=== PATIENT | female | born 1985 | race Asian ===

== ENCOUNTER → 2018-03-01 | Outpatient (CLI) | payer BC ==
--- NOTE | 2018-03-01 17:10 | RADIOLOGY REPORT (SQ) ---
EXAM DESCRIPTION: FOOT LEFT COMPLETE COMPLETED DATE/TIME: 03/01/2018 4:55 pm REASON FOR STUDY: LEFT FOOT PAIN M79.672 PAIN IN LEFT FOOT dropped something heavy on the top of he r foot 6 weeks ago, continued pain COMPARISON: None. NUMBER OF VIEWS: Three views. TECHNIQUE: AP, lateral and oblique radiographic images acquired of the left foot. LIMITATIONS: None. FINDINGS: MINERALIZATION: Normal. BONES: No acute fracture or dislocation. No worrisome bone lesions. JOINTS: No effusions. SOFT TISSUES: No soft tissue swelling. No foreign body. OTHER: No other significant finding. IMPRESSION: NEGATIVE STUDY OF THE LEFT FOOT. NO RADIOGRAPHIC EVIDENCE OF ACUTE INJURY. TECHNICAL DOCUMENTATION: JOB ID: [id number] [employer]- All Rights Reserved Reading location - IP/workstation name: [email or web address]
== END ==
LOC: OD 16:42
PROVIDERS: ATTEND Nurse Practitioner Family
DX: M79.672 Pain in left foot (principal)

== ENCOUNTER 2019-02-24 11:05 | Emergency (ER) | payer BC ==
[2019-02-24 11:28] VITALS: BP 133/73
[2019-02-24] MEDS ORDERED: IBUPROFEN 800 MG TABLET PO ONE (12:05)
--- NOTE | 2019-02-24 12:11 | ER Document Report ---
HPI - HPI Patient complains to provider of: left ankle injury Time Seen by Provider: 02/24/19 11:58 Onset: Yesterday Onset/Duration: Sudden, Persistent Quality of pain: Achy Severity: Moderate Pain Level: 3 Context: This 33-year-old female presents emergency department with complaints of left ankle pain after she was chasing her dog last night and jumped over a ditch. She reports she twisted it rolled it and felt a pop immediately. Patient reports she was able to walk on the foot last night so she thought she was okay. She went to work today at [employer] and started having severe pain unable to walk. Reports history of fracture to that ankle when she was a child. No other complaints such as fever vomiting diarrhea. She took Tylenol and that seemed to ease the pain a little bit. Associated Symptoms: None Exacerbated by: Walking Relieved by: Denies Similar symptoms previously: No Recently seen / treated by doctor: No Past Medical History - General Information source: Patient Last Menstrual Period: 3weeks ago - Social History Smoking Status: Current Every Day Smoker Cigarette use (# per day): Yes Chew tobacco use (# tins/day): No Frequency of alcohol use: Occasional Drug Abuse: None Occupation: [employer] Family History: Reviewed & Not Pertinent Patient has suicidal ideation: No Patient has homicidal ideation: No - Past Medical History Cardiac Medical History: Denies: Hx Heart Attack, Hx Hypertension Pulmonary Medical History: Denies: Hx Asthma, Hx Bronchitis, Hx COPD, Hx Pneumonia Neurological Medical History: Denies: Hx Cerebrovascular Accident, Hx Seizures GI Medical History: Musculoskeletal Medical History: Denies Hx Arthritis Traumatic Medical History: Reports: Hx Fractures Infectious Medical History: Past Surgical History: Reports: Hx Cholecystectomy. Denies: Hx Pacemaker - Immunizations Hx Diphtheria, Pertussis, Tetanus Vaccination: No Vertical Provider Document - CONSTITUTIONAL Agree With Documented VS: Yes Exam Limitations: No Limitations General Appearance: WD/WN, No Apparent Distress - winces with touch to ankle - INFECTION CONTROL TRAVEL OUTSIDE OF THE [place] IN LAST 30 DAYS: No - HEENT HEENT: Atraumatic, Normocephalic - NECK Neck: Supple - RESPIRATORY Respiratory: No Respiratory Distress - CARDIOVASCULAR Cardiovascular: Regular Rate - MUSCULOSKELETAL/EXTREMETIES Musculoskeletal/Extremeties: MAEW, Tender - Left lateral malleolus swelling, tender to palpate, good pedal pulse, cap refill less than 3 seconds. No ecchymosis no erythema - NEURO Level of Consciousness: Awake, Alert, Appropriate Motor/Sensory: No Motor Deficit - DERM Integumentary: Warm, Dry Course - Re-evaluation Re-evalutation: 02/24/19 12:50 33-year-old female presents with left ankle pain after she hurt it while chasing her dog last night. Ankle X-Ray 02/24/19 12:05 IMPRESSION: Tibiotalar joint effusion. Diffuse lateral soft tissue swelling. No disruption of the ankle mortise or acute displaced fractures identified 02/24/19 13:28 Tibiotalar effusion noted on x-ray. Patient will be treated with Mikhail wrap crutches pain medication. She was instructed on results. She was instructed on the importance of follow-up with a provider and orthopedics she verbalized understanding to all instructions Dictation of this chart was performed using voice recognition software; therefore, there may be some unintended grammatical errors. - Vital Signs Vital signs: Temp Pulse Resp BP Pulse Ox 98.2 F 85 18 133/73 H 100 02/24/19 11:27 02/24/19 11:27 02/24/19 11:27 02/24/19 11:27 02/24/19 11:27 - Diagnostic Test Radiology reviewed: Image reviewed, Reports reviewed Procedures - Immobilization Left Ankle Immobilizer type: Mikhail wrap Performed by: RAJIV waters Post-Proc Neuro Vasc Exam: Unchanged from pre-exam Alignment checked and good: Yes Discharge - Discharge Clinical Impression: Left ankle injury Qualifiers: Encounter type: initial encounter Qualified Code(s): S99.912A - Unspecified injury of left ankle, initial encounter Sprain of left ankle Qualifiers: Encounter type: initial encounter Involved ligament of ankle: unspecified ligament Qualified Code(s): S93.402A - Sprain of unspecified ligament of left ankle, initial encounter Condition: Stable Disposition: HOME, SELF-CARE Instructions: Mikhail Wrap ([facility]), Use of Crutches ([facility]), Ice & Elevation ([facility]), Oral Narcotic Medication ([facility]), Sprained Ankle ([facility]) Additional Instructions: *You have been evaluated for an ankle injury, sprain *Rest/Ice/Elevate your ankle *Maintain the mikhail wrap, use the crutches for the next three days *Follow up with orthopedics Tuesday-call for an appointment *Take medication as prescribed (take ibuprofen as indicated take [place] for the acute pain) *Return to ED for worsening condition, changes, needs Monitor your blood pressure. Your blood pressure was elevated today. This may be because you were anxious, in pain or because you need medication. It is important to follow up with your primary care provider for full evaluation. Forms: Elevated Blood Pressure, Return to Work Referrals: GINA MUJICA FNP-C [NURSE PRACTITIONER] - Follow up in 1 week
--- NOTE | 2019-02-24 12:47 | RADIOLOGY REPORT (SQ) ---
EXAM DESCRIPTION: ANKLE LEFT COMPLETE COMPLETED DATE/TIME: 02/24/2019 12:34 pm REASON FOR STUDY: twisted felt pop swelling COMPARISON: None. NUMBER OF VIEWS: Three views. TECHNIQUE: AP, lateral, and oblique radiographic images acquired of the left ankle. LIMITATIONS: None. FINDINGS: MINERALIZATION: Normal. BONES: No acute fracture or dislocation. No worrisome bone lesions. JOINTS: There is a tibiotalar joint effusion present. Normal alignment at the ankle mortise SOFT TISSUES: Diffuse lateral soft tissue swelling. No foreign body. OTHER: No other significant finding. IMPRESSION: Tibiotalar joint effusion. Diffuse lateral soft tissue swelling. No disruption of the ankle mortise or acute displaced fractures identified TECHNICAL DOCUMENTATION: JOB ID: [id number] [employer]- All Rights Reserved Reading location - IP/workstation name: [email or web address]
[2019-02-24] MEDS ORDERED: HYDROCODONE/ACETAMINOPHEN 5-325 MG (6 TAB/ER DISP) PO PRN (13:27)
== END 2019-02-24 13:40 | disposition home or self-care (01) ==
LOC: ER 11:05
DX: S90.912A Unspecified superficial injury of left ankle, initial encounter (principal); S93.402A Sprain of unspecified ligament of left ankle, initial encounter; X50.1XXA Overexertion from prolonged static or awkward postures, initial encounter; F17.210 Nicotine dependence, cigarettes, uncomplicated
CPT/HCPCS: 99283

== ENCOUNTER 2019-06-02 17:40 | Emergency (ER) | payer BC ==
[2019-06-02] MEDS ORDERED: IBUPROFEN 600 MG TABLET PO ONE (18:55)
[2019-06-02] MEDS ORDERED: HYDROCODONE/ACETAMINOPHEN 5-325 MG TABLET PO ONE (18:55)
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
[2019-06-02 20:59] VITALS: BP 115/80
== END 2019-06-02 21:19 | disposition home or self-care (01) ==
LOC: ER 17:40
DX: S02.2XXA Fracture of nasal bones, initial encounter for closed fracture (principal); Y04.0XXA Assault by unarmed brawl or fight, initial encounter; F17.200 Nicotine dependence, unspecified, uncomplicated; Z90.49 Acquired absence of other specified parts of digestive tract
CPT/HCPCS: 70160; 99283

== ENCOUNTER 2020-05-29 16:18 | Emergency (ER) | payer SELFPAY ==
[2020-05-29 16:23] VITALS: BP 138/74
--- NOTE | 2020-05-29 17:28 | RADIOLOGY REPORT (SQ) ---
EXAM DESCRIPTION: HAND RIGHT 3 VIEWS IMAGES COMPLETED DATE/TIME: 05/29/2020 5:18 pm REASON FOR STUDY: right hand swelling COMPARISON: None. EXAM PARAMETERS: NUMBER OF VIEWS: Three views. TECHNIQUE: AP, lateral and oblique radiographic images acquired of the right hand. LIMITATIONS: None. FINDINGS: MINERALIZATION: Normal. BONES: No acute fracture or dislocation. No worrisome bone lesions. JOINTS: No effusions. SOFT TISSUES: Soft tissue swelling. No foreign body. OTHER: No other significant finding. IMPRESSION: Soft tissue swelling. No osseous abnormality. TECHNICAL DOCUMENTATION: JOB ID: [id number] 2010 [employer]- All Rights Reserved Reading location - IP/workstation name: [email or web address]
--- NOTE | 2020-05-29 17:34 | ER Document Report ---
ED Hand/Wrist Injury - General Chief Complaint: Hand Swelling Stated Complaint: HAND SWELLING Time Seen by Provider: 05/29/20 16:53 Primary Care Provider: RITA ALICIA DO [ACTIVE STAFF] - Follow up as needed TRAVEL OUTSIDE OF THE [place] IN LAST 30 DAYS: No - HPI Notes: Patient is a 34 y/o female with no medical hx who presents with right hand pain and swelling that began last night. Patient reports redness but denies any warmth. She state she recently started working at the [employer] and uses her hands a lot at work and is right hand dominant. Patient denies any injury or wounds to her right hand or any other complaints. She denies fever or vomiting. - Related Data Allergies/Adverse Reactions: acetaminophen [From Percocet] Adverse Reaction (Intermediate, Verified 05/29/20 18:37) itch,vomit oxycodone HCl [From Percocet] Adverse Reaction (Intermediate, Verified 05/29/20 18:37) itch,vomit Past Medical History - General Information source: Patient - Social History Smoking Status: Unknown if Ever Smoked Family History: Reviewed & Not Pertinent - Past Medical History Cardiac Medical History: Denies: Hx Heart Attack, Hx Hypertension Pulmonary Medical History: Denies: Hx Asthma, Hx Bronchitis, Hx COPD, Hx Pneumonia Neurological Medical History: Denies: Hx Cerebrovascular Accident, Hx Seizures GI Medical History: Musculoskeletal Medical History: Denies Hx Arthritis Traumatic Medical History: Reports: Hx Fractures Infectious Medical History: Past Surgical History: Reports: Hx Cholecystectomy. Denies: Hx Pacemaker - Immunizations Hx Diphtheria, Pertussis, Tetanus Vaccination: No Review of Systems - Review of Systems Constitutional: No symptoms reported EENT: No symptoms reported Cardiovascular: No symptoms reported Respiratory: No symptoms reported Gastrointestinal: No symptoms reported Genitourinary: No symptoms reported Female Genitourinary: No symptoms reported Musculoskeletal: See HPI Skin: No symptoms reported Hematologic/Lymphatic: No symptoms reported Neurological/Psychological: No symptoms reported Physical Exam - Vital signs Vitals: Temp Pulse Resp BP Pulse Ox 98.9 F 91 16 138/74 H 100 05/29/20 16:21 05/29/20 16:21 05/29/20 16:21 05/29/20 16:21 05/29/20 16:21 - Notes Notes: PHYSICAL EXAMINATION: GENERAL: Well-appearing, well-nourished and in no acute distress. HEAD: Atraumatic, normocephalic. EYES: sclera anicteric, conjunctiva are normal. ENT: Moist mucous membranes. NECK: Normal range of motion LUNGS: Normal work of breathing HEART: 2+ radial pulses bilaterally EXTREMITIES: Mild swelling and erythema to the right hand. Right hand nontender with no warmth. Range of motion mildly limited in flexion secondary to pain. Passive extension intact. Sensation grossly intact. Cap refill less than 2 seconds. No pitting or edema. No cyanosis. NEUROLOGICAL: No focal neurological deficits. Moves all extremities spontaneously and on command. PSYCH: Normal mood, normal affect. SKIN: Warm, Dry, normal turgor, no rashes or lesions noted. Course - Re-evaluation Re-evalutation: Patient is a 34-year-old female who presents with right hand swelling that began last night. Vital signs are stable and within normal limits. On exam, mild right hand swelling and erythema with no tenderness or warmth. Right hand x-ray is negative and shows no osseous abnormalities. Based on presentation and work- up, I believe patient symptoms are due to an overuse injury as she recently restarted working at the [employer]. Patient given a shot of IM Toradol for pain relief. She was advised to take Tylenol and ibuprofen as needed for pain. Orthopedic referral provided in case her symptoms do not improve. Return precau tions including symptoms of cellulitis were given to the patient. Patient will be discharged home at this time. Patient understands and is in agreement with the plan. - Vital Signs Vital signs: Temp Pulse Resp BP Pulse Ox 98.9 F 91 16 138/74 H 100 05/29/20 16:21 05/29/20 16:21 05/29/20 16:21 05/29/20 16:21 05/29/20 16:21 - Laboratory Results Critical Laboratory Results Reviewed: No Critical Results - Radiology Results Radiology Results Interpreted: Hand X-Ray 05/29/20 17:08 IMPRESSION: Soft tissue swelling. No osseous abnormality. Critical Radiology Results Reviewed: No Critical Results Discharge - Discharge Clinical Impression: Swelling of right hand, Right hand pain Condition: Stable Disposition: HOME, SELF-CARE Instructions: Arm Pain, Nonspecific ([facility]) Additional Instructions: Follow up with orthopedics if you hand pain continues and does not improve. Return to the emergency department if your symptoms worsen or if you develop fever, persistent vomiting or difficulty breathing. Forms: Return to Work Referrals: RITA ALICIA, [ACTIVE STAFF] - Follow up as needed
[2020-05-29] MEDS ORDERED: KETOROLAC TROMETHAMINE 60 MG/2 ML SDV IM ONE (18:12)
== END 2020-05-29 19:01 | disposition home or self-care (01) ==
LOC: ER 16:18
DX: R22.31 Localized swelling, mass and lump, right upper limb (principal); M79.641 Pain in right hand; Z88.6 Allergy status to analgesic agent; Z90.49 Acquired absence of other specified parts of digestive tract
CPT/HCPCS: 99284; 96372; 73130; J1885